=== PATIENT | male | born 1945 | race Caucasian/White ===

== ENCOUNTER → 2017-06-03 | Outpatient (CLI) | payer MEDICARE, OTHER ==
[~2017-06-03] MED LIST: AMOX500C2 PO; CHLO15MO3 MM; FNST5T PO; HYDR-3714 PO; METR250T PO; TMSL.4C PO
--- NOTE | 2017-06-03 09:46 | Diagnostic Imaging Report ---
PROCEDURE: US Gallbladder. TECHNIQUE: Multiple real-time grayscale images were obtained over the right upper quadrant in various projections. INDICATION: Abdominal pain. FINDINGS: The pancreas is obscured by bowel gas. The liver is fairly homogeneous with its diagonal measurements of 18 cm craniocaudally, at the upper limits of normal. There is hepatopetal flow in the portal vein. The gallbladder demonstrates sludge and a stone. There is minimal wall thickening up to 3.5 mm with no pericholecystic fluid. Sonographic Lee sign is reportedly negative. The CBD is at the upper limits of normal measuring 6 mm in caliber. The right kidney is 11.7 cm in length with no hydronephrosis or focal lesion. No fluid collection in the upper right abdomen seen. IMPRESSION: Gallbladder stones and sludge with minimal gallbladder wall thickening, probably related to mild chronic cholecystitis. Dictated by: Dictated on workstation # [id number]
== END ==
LOC: RAD 07:57
PROVIDERS: ATTEND Nurse Practitioner Family
DX: K80.20 Calculus of gallbladder without cholecystitis without obstruction (principal); R10.13 Epigastric pain
CPT/HCPCS: 76705

== ENCOUNTER 2017-06-16 05:34 | Outpatient (CLI) | payer MEDICARE, OTHER ==
[~2017-06-16] VITALS: Ht 177.8 cm; Wt 84.4 kg
[2017-06-16] MEDS ORDERED: METF500T4 PO (10:20)
== END 2017-06-16 10:50 ==
LOC: PREOP 05:34
PROVIDERS: ATTEND Surgery
DX: Z01.818 Encounter for other preprocedural examination (principal); K80.20 Calculus of gallbladder without cholecystitis without obstruction

== ENCOUNTER 2017-06-18 08:20 | Day surgery (SDC) | payer MEDICARE, OTHER ==
[~2017-06-18] VITALS: Ht 177.8 cm; Wt 84.4 kg
[~2017-06-18 08:20] MED LIST changes: +METF500T4 PO
[2017-06-18] MEDS ORDERED: metroNIDAZOLE 500 MG/100 ML IVPB (PRE-MIX) IV ONE (08:45)
[2017-06-18] MEDS ORDERED: ceFAZolin 2 GM/NS 50 ML IV ONE (08:45)
[2017-06-18] MEDS: LACTATED RINGERS 1,000 ML IV PRN ×2 (09:14→11:25)
[2017-06-18 09:24] VITALS: BP 136/77
[2017-06-18] MEDS ORDERED: BUP/EPI 0.25% 1:200,000 (MARCAINE) 10 ML VIAL IJ ONE (09:24)
--- NOTE | 2017-06-18 09:25 | Progress Note-Pre Operative ---
Pre-Operative Progress Note H&P Reviewed The H&P was reviewed, patient examined and no changes noted. Date Seen by Provider: Jun 18, 2017 Time Seen by Provider: 09:25 Date H&P Reviewed: Jun 18, 2017 Time H&P Reviewed: :25 Pre-Operative Diagnosis: gallstones RUDY CORREA MD Jun 18, 2017 9:25 am
[2017-06-18] MEDS ORDERED: fentaNYL INJECTION 100 MCG/2 ML AMP ONE ×2 (09:42→12:07)
[2017-06-18] MEDS ORDERED: MIDAZOLAM 2 MG/2 ML (VERSED) VIAL ONE (09:42)
[2017-06-18] MEDS ORDERED: ONDANSETRON 4 MG/2 ML (SDV) Z0FRAN ONE (09:42)
[2017-06-18] MEDS ORDERED: LIDOCAINE PF 2% 5 ML (XYLOCAINE) VIAL ONE (09:42)
[2017-06-18] MEDS ORDERED: SEVOFLURANE (ULTANE) 15 ML INHAL SOLN ONE ×6 (09:42→11:48)
[2017-06-18] MEDS ORDERED: LACTATED RINGERS 1,000 ML IV ONE ×2 (09:42→12:00)
[2017-06-18] MEDS ORDERED: proPOfol 200 MG/20 ML (DIPRIVAN) VIAL IV ONE (09:42)
[2017-06-18] MEDS ORDERED: morphine INJ 10 MG/ML 1ML (SYR OR VIAL) ONE (10:44)
[2017-06-18] MEDS ORDERED: LABETALOL HCL 20 MG/4 ML VIAL ONE (11:26)
[2017-06-18] MEDS ORDERED: GLYCOPYRROLATE 0.2 MG/ML (ROBINUL) 2 ML VIAL ONE (11:48)
[2017-06-18] MEDS ORDERED: NEOSTIGMINE (BLOXIVERZ ) 1 MG/1ML 10 ML VIAL ONE (11:48)
[2017-06-18] MEDS ORDERED: ROCURONIUM 50 MG/5 ML (ZEMURON) VIAL IV ONE (12:00)
--- NOTE | 2017-06-18 12:08 | Operative Report ---
Operative Report Date of Procedure/Surgery Jun 18, 2017 Surgeon (s) RUDY CORREA MD Applied Behavior Specialist (s): not applicable Post-Operative Diagnosis same Procedure Performed robotic-assisted cholecystectomy Description of Procedure Anesthesia Type: General Estimated blood loss (mL): minimal Specimen(s) collected/removed gallbladder Description of the Procedure Indication for procedure: This gentleman presented with symptomatic gallstones. He was offered cholecystectomy using minimally invasive technique with robotic assistance.informed consent was obtained after reviewing the operative details and complications of wound infection and bile leak. Description of the procedure:He was placed supine on the operating table and general anesthesia induced using an endotracheal tube in gram of Ancef and 500 mg of Flagyl were administered intravenously as prophylaxis against wound infection. Sequential compression devices were placed around his legs, to minimize the risk of venous thrombosis. Abdomen was prepared and draped in the usual sterile manner. A supraumbilical incision was made and pneumoperitoneum established using a Veress needle. Intra -abdominal pressure was maintained at 15 mmHg, using carbon dioxide insufflation. A 12 mm trocar was placed and anatomy visualized using the high definition, 3-dimensional laparoscope, associated with da Anitha system. Gallbladder was rather thick due to chronic inflammation. Under direct view, I placed an 8 mm trocar over each side of the abdomen, followed by a 5 mm trocar over the left upper port. The patient was then turned into reverse Trendelenburg position and the robotic system docked in place. Omentum adherent to the fundus of the gallbladder was taken down using hook cautery. Fundus was then retracted cephalad and infundibulum grasped with Cardiere forceps. Thick tissue around the neck of the gallbladder was incised using hook cautery, delineating the cystic duct and artery. Both were divided between locking clips.cholecystectomy was completed using hook cautery. Subhepatic space was irrigated with saline and the gallbladder placed in an Endo Catch bag, to be removed via the supraumbilical trocar site. The fascia over this incision was closed using #1 Vicryl. Skin incisions were closed using 4-0 Vicryl, in a subcuticular fashion. 0.25 percent Marcaine with epinephrine was infiltrated along the incisions, both pre-preemptively and at the conclusion of the operation. He tolerated the procedure well, was extubated in the operating room and taken to the recovery room in a stable condition. Findings of the Procedure See descriptive report Allergies and Home Medications Allergies Coded Allergies: No Known Drug Allergies (Unverified , 06/16/17) Home Medications Finasteride 5 Mg Tab, 5 MG PO DAILY, (Reported) Metformin HCl 500 Mg Tablet, 500 MG PO DAILY, (Reported) Tamsulosin Hcl 0.4 Mg Cap, 0.8 MG PO HS, (Reported) TAKES 2 (0.4MG) CAPSULES DAILY RUDY CORREA MD Jun 18, 2017 12:08 pm
[2017-06-18] MEDS ORDERED: HYDR-3820 PO (12:09)
--- NOTE | 2017-06-18 12:10 | Discharge Inst-Simple/Standard ---
Discharge Inst-Standard Discharge Medications New, Converted or Re-Newed RX: RX on Chart Patient Instructions/Follow Up Plan of Care/Instructions/FU: Band-Aids off in 48 hours. Incentive spirometry. Follow-up in 3 weeks. Activity as Tolerated: Yes Discharge Diet: ADA RUDY Alvarado MD Jun 18, 2017 12:10 pm
[2017-06-18] MEDS ORDERED: ONDANSETRON 4 MG/2 ML (SDV) Z0FRAN IVP PRN (12:30)
[2017-06-18] MEDS: morphine INJ 10 MG/ML 1ML (SYR OR VIAL) IVP PRN ×2 (12:50→12:55)
[2017-06-18 13:30] VITALS: BP 141/71
[2017-06-18 14:00] VITALS: BP 138/68
[2017-06-18 14:30] VITALS: BP 121/67
[2017-06-18 15:20] VITALS: BP 121/67
== END 2017-06-18 15:20 | disposition home or self-care (01) ==
LOC: SDC 08:20
PROVIDERS: ATTEND Surgery
DX: K81.1 Chronic cholecystitis (principal); R73.03 Prediabetes; Z79.84 Long term (current) use of oral hypoglycemic drugs
CPT/HCPCS: 82962; 87081; 88304; 94664

== ENCOUNTER → 2019-12-22 | Outpatient (CLI) | payer MEDICARE, OTHER ==
[~2019-12-22] MED LIST changes: +HYDR-3820 PO; +METF-397 PO; -METF500T4 PO
--- NOTE | 2019-12-22 15:33 | Diagnostic Imaging Report ---
INDICATION: Lower back and hip pain over the past couple of months. No injury. TECHNIQUE: AP, Lateral, bilateral oblique and Spot imaging of the lumbar spine CORRELATION STUDY: None FINDINGS: Alignment is anatomic. Lumbar vertebral body heights maintained. There is mild anterior osteophyte formation particularly at L3 and L4, to a lesser degree L5 levels. Intervertebral disc spaces appear fairly well-maintained. No spondylolysis or spondylolisthesis. Mild hypertrophic facet arthropathy lower lumbar spine. SI joints with slight sclerosis and fusion inferiorly on the left. IMPRESSION: No radiographic evidence for acute bony abnormality of the lumbar spine. Mild multilevel degenerative changes. Dictated by: Dictated on workstation # [id number]
== END ==
LOC: RAD 14:55
PROVIDERS: ATTEND Chiropractor
DX: M47.816 Spondylosis without myelopathy or radiculopathy, lumbar region (principal); M99.04 Segmental and somatic dysfunction of sacral region; M99.03 Segmental and somatic dysfunction of lumbar region; M99.02 Segmental and somatic dysfunction of thoracic region; M79.10 Myalgia, unspecified site; R29.3 Abnormal posture
CPT/HCPCS: 72110

== ENCOUNTER → 2020-05-13 | Outpatient (CLI) | payer MEDICARE, OTHER ==
[~2020-05-13] VITALS: Ht 178 cm; Wt 86.0 kg
[~2020-05-13] MED LIST changes: +ACHYD1T PO; +CATHETER FLUSH 10 ML SYR IV PRN; -HYDR-3820 PO
[2020-05-13 08:06] VITALS: BP 154/81
--- NOTE | 2020-05-13 11:21 | Cardiology Stress Test Report ---
Stress Test Report Date of Procedure/Referring: Date of Procedure: May 13, 2020 PCP Diogo Marcos DO Admitting Physician Diogo Marcos DO Indications: Elevated calcium score, chest pain Baseline Blood Pressure: Blood Pressure Systolic: 154 Blood Pressure Diastolic: 81 Summary: Patient received resting and stress those of [facility], images were acquired and reviewed in the short axis, horizontal long axis and vertical long axis views. TID 0.92 SSS 2 SDS 2 EF 53% Conclusion: 1. Good radiotracer uptake, minimal decreased uptake at the anteroapical segment with no significant ischemia or infarction 2. Normal left ventricular size with ejection fraction 53 percent ELENI RICCI MD May 13, 2020 11:21
== END ==
LOC: CARD 07:02
PROVIDERS: ATTEND Internal Medicine
DX: R07.9 Chest pain, unspecified (principal); R93.1 Abnormal findings on diagnostic imaging of heart and coronary circulation
CPT/HCPCS: 78452; 93017; A9502

== ENCOUNTER 2021-06-27 10:28 | Outpatient (CLI) | payer MEDICARE, OTHER ==
[~2021-06-27] VITALS: Ht 177 cm; Wt 83.9 kg
[2021-06-27 10:20] VITALS: BP 150/72
[~2021-06-27 10:28] MED LIST changes: -CATHETER FLUSH 10 ML SYR IV PRN
[2021-06-27] MEDS ORDERED: CASIRIVIMAB/IMDEVIMAB 1,200 MG in NS (IVPB) 250 ML IV ONE (10:30)
[2021-06-27] MEDS ORDERED: diphenhydrAMINE 50 MG/ML INJ (BENADRYL) IV PRN (10:30)
[2021-06-27] MEDS ORDERED: EPINEPHrine INJECTION 1 MG/ML AMP IM PRN (10:30)
[2021-06-27 11:49] VITALS: BP 121/76
== END 2021-06-27 12:26 | disposition home or self-care (01) ==
LOC: INFUSION 10:28
PROVIDERS: ATTEND Internal Medicine
DX: Z23 Encounter for immunization (principal); U07.1 COVID-19

== ENCOUNTER → 2021-07-09 | Outpatient (CLI) | payer MEDICARE, OTHER ==
--- NOTE | 2021-07-09 16:37 | Diagnostic Imaging Report ---
EXAMINATION: Chest 2 views. HISTORY: History of Covid 19. COMPARISON: None available. FINDINGS: Heart size and pulmonary vasculature are normal. Minimal interstitial opacities in the lung bases. The osseous structures are intact. IMPRESSION: 1. Minimal interstitial opacities in the lung bases which could represent atelectasis but could also be seen with history of Covid 19 and pneumonia. Dictated by: Dictated on workstation # [id number]
== END ==
LOC: RAD 15:57
PROVIDERS: ATTEND Internal Medicine
DX: R91.8 Other nonspecific abnormal finding of lung field (principal); Z86.16 Personal history of COVID-19
CPT/HCPCS: 71046

== ENCOUNTER → 2021-08-15 | Outpatient (CLI) | payer MEDICARE, OTHER ==
--- NOTE | 2021-08-15 08:51 | Diagnostic Imaging Report ---
Clinical indication: AAA screening. Exam: Ultrasound of the abdominal aorta. Comparison study: None. Findings: The abdominal aorta has smooth contour and caliber without evidence of aneurysms. The maximum AP and transverse diameters for the upper, mid, and distal abdominal aorta are 1.3 cm x 1.6 cm, 1.7 cm x 1.9 cm, and 1.6 cm x 1.7 cm, respectively. Both common iliac artery contours are smooth with normal caliber with the right and left measuring 1.2 cm and 1.2 cm in greatest AP dimension. Impression: There is no evidence of aneurysmal dilation of the abdominal aorta or bilateral common iliac arteries. Dictated by: Dictated on workstation # [id number]
== END ==
LOC: RAD 07:35
PROVIDERS: ATTEND Internal Medicine
DX: Z13.6 Encounter for screening for cardiovascular disorders (principal); I25.10 Atherosclerotic heart disease of native coronary artery without angina pectoris; M54.5 Low back pain
CPT/HCPCS: 76775

== ENCOUNTER → 2021-09-22 | Outpatient (CLI) | payer MEDICARE, OTHER ==
--- NOTE | 2021-09-22 14:02 | Diagnostic Imaging Report ---
PROCEDURE: US carotid duplex, bilateral. TECHNIQUE: Multiple real-time grayscale images were obtained over the carotid arteries in various projections, bilaterally. Additional spectral analysis and color Doppler duplex images were also obtained. INDICATION: Dizziness. COMPARISON: None. FINDINGS: RIGHT CAROTID: There is mild intimal thickening in the common carotid artery. There is jygoorfq-sq-datlsy atherosclerosis in the carotid bifurcation and proximal right ICA. This results in about 50% stenosis visually. Velocities are elevated at the proximal ICA consistent with 50-69% stenosis. No stenosis is seen distally in the ICA. The ECA is patent. The vertebral artery is antegrade. Carotid upstrokes appear brisk. LEFT CAROTID: There is mild intimal thickening of the left common carotid artery and mild atherosclerosis at the carotid bulb. There is mild atherosclerosis at the proximal internal carotid artery with less than 50% stenosis. The ECA is patent. Vertebral artery is antegrade. Carotid upstrokes are brisk. Parameters based on the consensus panel Samuels-Scale and Doppler ultrasound criteria published September 2003, Radiology, Volume 229. DOPPLER (peak systolic velocity M/S Right Left CCA .94 .99 ICA Proximal 1.51 .70 ICA Mid 1.02 .84 ICA Distal .73 .78 RATIO 2.25 .70 ECA 1.06 1.10 VERT .39 .39 IMPRESSION: 1. Atherosclerosis in the carotid arteries, right greater than left, resulting in 50-69% stenosis in the right internal carotid artery. Dictated by: Dictated on workstation # [id number]
== END ==
LOC: RAD 10:45
PROVIDERS: ATTEND Internal Medicine
DX: I65.23 Occlusion and stenosis of bilateral carotid arteries (principal)
CPT/HCPCS: 93880

== ENCOUNTER 2021-11-22 10:23 | Emergency (ER) | payer MEDICARE, OTHER ==
[~2021-11-22] VITALS: Ht 177.8 cm; Wt 83.9 kg
--- NOTE | 2021-11-22 11:11 | ED Cough/URI ---
General Chief Complaint: COVID19 Suspect/Confirmed Stated Complaint: COUGH/CONGESTION/SOA Nursing Triage Note: has had respiritory illness with weakness, cough, congestion and not today feels like he is wheezing and sob Source: patient Exam Limitations: no limitations History of Present Illness Date Seen by Provider: Nov 22, 2021 Time Seen by Provider: 11:01 Initial Comments 76-year-old male presents to the emergency department today with a chief complaint of congestion, cough, concern for wheezing that is developed over the last 48 hours. Not really short of breath. Slightly decreased appetite not eating or drinking much. He denies fevers or chills. He has been using Coricidin without any relief of symptoms. He states that he feels like his cough is "breaking up" starting this morning. No problems with bowel or bladder. No sick contacts with known Covid Covid positive persons. He was tested for Covid 9 days ago as well as 2 days ago and it was negative. He is vaccinated however his vaccines were at the beginning of the year and he has not had a booster. All other review of systems reviewed and negative except as stated Timing/Duration: week, getting worse Severity/Quality: moderate, productive cough, sputum Prior Episodes/Possible Cause: illness exposure Associated Symptoms: nasal congestion Allergies and Home Medications Allergies Coded Allergies: No Known Drug Allergies (Unverified , 06/16/17) Patient Home Medication List Home Medication List Reviewed: Yes Finasteride (Proscar) 5 Mg Tab, 5 MG PO DAILY, (Reported) Entered as Reported by: NESTOR SALGUERO on 01/08/14 1530 Hydrocodone Bit/Acetaminophen (HYDROcodone/APAP 10/325 TABLET) 1 Each Tablet, 1 TAB PO Q4H PRN for PAIN-MILD TO MODERATE Prescribed by: RUDY CORREA on 06/18/17 1209 Metformin HCl (Metformin HCl) 500 Mg Tablet, 500 MG PO DAILY, (Reported) Entered as Reported by: PAVEL LÓPEZ on 06/16/17 1020 Tamsulosin Hcl (Flomax) 0.4 Mg Cap, 0.8 MG PO HS, (Reported) Entered as Reported by: NESTOR SALGUERO on 01/08/14 1529 Review of Systems Review of Systems Constitutional: see HPI EENTM: nose congestion Respiratory: cough, phlegm Cardiovascular: no symptoms reported Gastrointestinal: no symptoms reported Genitourinary: no symptoms reported Musculoskeletal: no symptoms reported Skin: no symptoms reported Psychiatric/Neurological: No Symptoms Reported All Other Systems Reviewed Negative Unless Noted: Yes Past Xitnamb-Szyvrl-Smpifg Hx Patient Social History Tobacco Use?: No Use of E-Cig and/or Vaping dev: No Substance use?: No Alcohol Use?: No Pt feels they are or have been: No Immunizations Up To Date Influenza Vaccine Up-to-Date: Yes; Up-to-Date First/Initial COVID19 Vaccinat: nov 2020 Second COVID19 Vaccination Chato: dec 2020 COVID19 Vaccine Embroidery Patternmaker: moderna Seasonal Allergies Seasonal Allergies: No Past Medical History Orthopedic Reproductive Disorders: No Sexually Transmitted Disease: No HIV/AIDS: No Kidney Stones Gastroesophageal Reflux, Gall Bladder Disease Loss of Vision: Bilateral Hearing Impairment: Denies Adverse Reaction/Blood Tranf: No (N/A) Family Medical History Diabetes Physical Exam Vital Signs - First Documented Capillary Refill : Height: 5'10.00" Weight: 186lbs. 0.0oz. 84.558631nw; 26.00 BMI Method:Stated General Appearance: WD/WN, no apparent distress Eyes: Bilateral Eye Normal Inspection, Bilateral Eye PERRL, Bilateral Eye EOMI HEENT: PERRL/EOMI, other (Appears well-hydrated) Neck: supple Respiratory: no respiratory distress, no accessory muscle use, wheezing (Slight wheeze and occasional crackle noted posteriorly in the left lung) Cardiovascular: regular rate, rhythm Gastrointestinal: normal bowel sounds, non tender, soft Extremities: normal range of motion, non-tender, normal inspection, no pedal edema, no calf tenderness, normal capillary refill Neurologic/Psychiatric: alert, normal mood/affect, oriented x 3 Skin: normal color, warm/dry Progress/Results/Core Measures Suspected Sepsis SIRS Temperature: Pulse: 66 Respiratory Rate: 11 Blood Pressure 199 /94 Mean: 129 Results/Orders Lab Results Laboratory Tests Test 11/22/21 10:48 Range/Units SARS-CoV-2 RNA (RT-PCR) Not Detected Not Detecte My Orders Orders - SWATI BALL MD Chest 1 View, Ap/Pa Only (11/22/21 11:11) Covid 19 Inhouse Test (11/22/21 11:11) Isolation Central Supply Req (11/22/21 11:11) Vital Signs/I&O 11/22/21 11/22/21 10:43 10:43 Temp 36.4 Pulse 66 Resp 11 B/P (MAP) 199/94 (129) Pulse Ox 98 O2 Delivery Room Air Room Air Capillary Refill : Blood Pressure Mean: 129 Progress Note : Time: 12:12 Progress Note Again Covid negative, vital signs are stable oxygen is 97 to 99% on room air with no increased work of breathing. Awaiting chest x-ray. Slight delay as x-ray is up on the floor doing multiple Covid chest x-rays and a swallow study. Diagnostic Imaging Diagonstic Imaging: Xray Plain Films/CT/US/NM/MRI: chest Comments Chest x-ray, interpreted by me, clear lungs, normal mediastinal structures, no effusions or infiltrates, normal bony thorax Departure Impression Primary Impression: Viral syndrome Disposition: 01 HOME, SELF-CARE Condition: Stable Departure-Patient Inst. Decision time for Depature: 12:38 Referrals: MATTHEW MARCOS DO (PCP/Family) Primary Care Physician Patient Instructions: Viral Syndrome (DC) Add. Discharge Instructions: Continue to use the Coricidin for cold symptoms. You can also take some peal-xyz-wxvaxub Mucinex, take this as directed on the box. This will help thin your secretions. Jfvk-ocs-ptevwjv ibuprofen, 2 to 3 tablets which is 400 to 600 mg every 6 hours as needed for fever/chest discomfort with cough. Please try and drink lots of fluids to stay well-hydrated. Return to the emergency room for worsening symptoms especially with fever, progressive shortness of breath or any other emergent concerning symptoms. Follow-up with Dr. Marcos as needed. Copy Copies To 1: MATTHEW MARCOS KATHRYN M MD Nov 22, 2021 11:11
[2021-11-22 12:43] VITALS: BP 173/86
--- NOTE | 2021-11-22 12:55 | Diagnostic Imaging Report ---
INDICATION: Weakness, cough, congestion, shortness of breath. TECHNIQUE: Single view chest 12:41 PM. CORRELATION STUDY: 07/09/2021 FINDINGS: The heart size, mediastinal configuration and pulmonary vascularity are within normal limits. The lungs are clear with no consolidating infiltrate. There is no significant effusion or pneumothorax. IMPRESSION: 1. Negative for acute abnormality of the chest. Dictated by: Dictated on workstation # [id number]
== END 2021-11-22 12:48 | disposition home or self-care (01) ==
LOC: EDUNIT# 10:23 → ER 10:25
DX: B34.9 Viral infection, unspecified (principal); Z20.822 Contact with and (suspected) exposure to COVID-19
CPT/HCPCS: 71045; 87636

== ENCOUNTER 2021-12-15 05:30 | Outpatient (CLI) | payer MEDICARE, OTHER ==
[~2021-12-15] VITALS: Ht 177.8 cm; Wt 84.1 kg
[2021-12-18] MEDS ORDERED: MELO-170 PO (14:54)
[2021-12-18] MEDS ORDERED: ASPI-999 PO (14:54)
[2021-12-18] MEDS ORDERED: OMEP40CA6 PO (14:54)
[2021-12-18] MEDS ORDERED: METHYL B12 (14:54)
[2021-12-18] MEDS ORDERED: ATOR40TA70 PO (14:54)
[2021-12-18] MEDS ORDERED: MAGN400T39 PO (14:54)
[2021-12-18] MEDS ORDERED: DUTA0.5C36 PO (15:03)
== END 2021-12-18 15:04 | disposition home or self-care (01) ==
LOC: PREOP 05:30
PROVIDERS: ATTEND Specialist
DX: Z01.818 Encounter for other preprocedural examination (principal)

== ENCOUNTER 2021-12-22 06:12 | Day surgery (SDC) | payer MEDICARE, OTHER ==
[~2021-12-22] VITALS: Ht 177.8 cm; Wt 84.1 kg
[~2021-12-22 06:12] MED LIST changes: +ASPI-999 PO; +ATOR40TA70 PO; +DUTA0.5C36 PO; +MAGN400T39 PO; +MELO-170 PO; +METHYL B12; +OMEP40CA6 PO
[2021-12-22] MEDS ORDERED: TIMOLOL MALEATE 0.5% 5 ML (TIMOPTIC) BTL OU PRN (06:30)
[2021-12-22] MEDS ORDERED: POVIDONE (BETADINE) OPHTH SOLN 5% 30 ML OP ONE (06:30)
[2021-12-22] MEDS ORDERED: LIDOCAINE PF 1% 2 ML VIAL IR PRN (06:30)
[2021-12-22] MEDS ORDERED: MOXIFLOXACIN OPHTH SOLN 5 MG/ML 0.3 ML SYRINGE OP ONE (06:30)
[2021-12-22] MEDS: TETRACAINE 0.5% OPHTH SOLN 4 ML BTL (SINGLE DOSE ONLY) OU PRN ×4 (06:36→06:53)
[2021-12-22 06:40] VITALS: BP 151/76
[2021-12-22] MEDS: PHENYLEPHRINE 10% OPHTH (NEO-SYN) 5 ML BTL OU SCH ×3 (06:43→06:53)
[2021-12-22] MEDS: TROPICAMIDE 1% OPH SOLN (MYDRIACYL) 15 ML BTL OP SCH ×3 (06:43→06:53)
[2021-12-22] MEDS ORDERED: MIDAZOLAM 2 MG/2 ML (VERSED) VIAL ONE (06:55)
--- NOTE | 2021-12-22 06:57 | Ophthalmologist Pre-Op Note ---
Pre-Operative Progress Note H&P Reviewed The H&P was reviewed, patient examined and no changes noted. Date H&P Reviewed: Dec 22, 2021 Time H&P Reviewed: 06:57 Pre-Op Dx Cataract, Right Eye TAMMIE HOOVER MD Dec 22, 2021 06:57
--- NOTE | 2021-12-22 07:20 | Ophthalmology Operative Report ---
Cataract, Miotic Pupil PREOPERATIVE DIAGNOSIS: 1. Cataract Right Eye 2. Miotic Pupil POSTOPERATIVE DIAGNOSIS: 1. Cataract Right Eye 2. Miotic Pupil PROCEDURE: 1. Cataract removal and placement of posterior chamber implant, right eye 2. Pupillary expansion with malyugin ring SURGEON: Adin Hoover ANESTHESIA: Topical with sedation COMPLICATIONS: None ESTIMATED BLOOD LOSS: Minimal DESCRIPTION OF PROCEDURE: After proper informed consent was obtained, the patient, a 76 male, was taken to the Operating Room and the right eye was anesthetized with Tetracaine. The eye was then prepped and draped in the usual manner. A wire lid speculum was placed. A paracentesis was made at the left hand position. Preservative free lidocaine was injected into anterior chamber followed by viscoelastic. A clear corneal incision was made in the temporal position. The malyugin ring was injected into the anterior chamber and the pupil was dilated. A capsulorrhexis was preformed and the central nuclear and cortical material were removed. The posterior capsule was polished and Nelson 19.5 AU00T0 IOL was placed into the capsular bag. The malyugin ring was removed. The residual viscoelastic was aspirated and the balanced saline solution was injected into the anterior chamber. Moxifloxacin was injected into the anterior chamber. The wound was checked and found to be water tight. The patient tolerated the procedure well without complications. ADIN HOOVER MD Dec 22, 2021 07:20
[2021-12-22] MEDS ORDERED: acetaZOLAMIDE ER 500 MG CAP (DIAMOX SEQUELS) PO ONE (07:30)
[2021-12-22 07:36] VITALS: BP 150/78
--- NOTE | 2021-12-22 12:43 | Anesthesia-General Post-Op ---
MAC Patient Condition Mental Status/LOC: Same as Preop Cardiovascular: Satisfactory Nausea/Vomiting: Absent Respiratory: Satisfactory Pain: Controlled Complications: Absent Post Op Complications Complications None Follow Up Care/Instructions Patient Instructions None needed. Anesthesiology Discharge Order Discharge Order Patient was doing well this morning after the procedure, no complaints, stable vital signs, no apparent adverse anesthesia problems. JADE CASTANON DO Dec 22, 2021 12:43
== END 2021-12-22 07:37 ==
LOC: SDC 06:12
PROVIDERS: ATTEND Specialist
DX: E11.36 Type 2 diabetes mellitus with diabetic cataract (principal); H25.11 Age-related nuclear cataract, right eye; H57.03 Miosis; E78.5 Hyperlipidemia, unspecified; K21.9 Gastro-esophageal reflux disease without esophagitis; E11.9 Type 2 diabetes mellitus without complications; Z79.82 Long term (current) use of aspirin; Z79.84 Long term (current) use of oral hypoglycemic drugs; Z79.899 Other long term (current) drug therapy; Z83.3 Family history of diabetes mellitus
CPT/HCPCS: 66982; V2632

== ENCOUNTER 2022-01-09 06:03 | Day surgery (SDC) | payer MEDICARE, OTHER ==
[~2022-01-09] VITALS: Ht 177 cm; Wt 84.1 kg
[2022-01-09] MEDS: TETRACAINE 0.5% OPHTH SOLN 4 ML BTL (SINGLE DOSE ONLY) OU PRN ×4 (06:14→06:36)
[2022-01-09] MEDS ORDERED: MOXIFLOXACIN OPHTH SOLN 5 MG/ML 0.3 ML SYRINGE OP ONE (06:15)
[2022-01-09] MEDS ORDERED: POVIDONE (BETADINE) OPHTH SOLN 5% 30 ML OP ONE (06:15)
[2022-01-09] MEDS ORDERED: LIDOCAINE PF 1% 2 ML VIAL IR PRN (06:15)
[2022-01-09] MEDS ORDERED: TIMOLOL MALEATE 0.5% 5 ML (TIMOPTIC) BTL OU PRN (06:15)
[2022-01-09 06:19] VITALS: BP 137/74
[2022-01-09] MEDS: TROPICAMIDE 1% OPH SOLN (MYDRIACYL) 15 ML BTL OP SCH ×3 (06:22→06:36)
[2022-01-09] MEDS: PHENYLEPHRINE 10% OPHTH (NEO-SYN) 5 ML BTL OU SCH ×3 (06:22→06:36)
[2022-01-09] MEDS ORDERED: MIDAZOLAM 2 MG/2 ML (VERSED) VIAL ONE (06:54)
--- NOTE | 2022-01-09 07:08 | Ophthalmologist Pre-Op Note ---
Pre-Operative Progress Note H&P Reviewed The H&P was reviewed, patient examined and no changes noted. Date H&P Reviewed: Jan 09, 2022 Time H&P Reviewed: 07:08 Pre-Op Dx Cataract, Left Eye TAMMIE HOOVER MD Jan 09, 2022 07:08
--- NOTE | 2022-01-09 07:23 | Ophthalmology Operative Report ---
Cataract removal/placement IOL PREOPERATIVE DIAGNOSIS: Cataract Left Eye POSTOPERATIVE DIAGNOSIS: Cataract Left Eye PROCEDURE: Cataract removal and placement of posterior chamber implant, left eye SURGEON: Adin Hoover ANESTHESIA: Topical with sedation COMPLICATIONS: None ESTIMATED BLOOD LOSS: Minimal DESCRIPTION OF PROCEDURE: After proper informed consent was obtained, the patient, a 76 male, was taken to the Operating Room and the left eye was anesthetized with tetracaine. The left eye was then prepped and draped in the usual manner. A wire lid speculum was placed. A paracentesis was made at the left hand position. Preservative free lidocaine was injected into the anterior chamber followed by viscoelastic. A clear corneal incision was made in the temporal position. A capsulorrhexis was preformed and the central nuclear and cortical material were removed. The posterior capsule was polished and an Nelson 20.0 AU00T0 was placed into the capsular bag. The residual viscoelastic was aspirated and balanced saline solution was injected into the anterior chamber. Moxifloxacin was injected into the anterior chamber. The wound was checked and found to be water tight. The patient tolerated the procedure well without complications. ADIN HOOVER MD Jan 09, 2022 07:23
[2022-01-09 07:28] VITALS: BP 151/77
[2022-01-09] MEDS ORDERED: acetaZOLAMIDE ER 500 MG CAP (DIAMOX SEQUELS) PO ONE (09:00)
--- NOTE | 2022-01-09 10:41 | Anesthesia-General Post-Op ---
MAC Patient Condition Mental Status/LOC: Same as Preop Cardiovascular: Satisfactory Nausea/Vomiting: Absent Respiratory: Satisfactory Pain: Controlled Complications: Absent Post Op Complications Complications None Follow Up Care/Instructions Patient Instructions None needed. Anesthesiology Discharge Order Discharge Order Patient is doing well, no complaints, stable vital signs, no apparent adverse anesthesia problems. No complications reported per nursing. ERIKA KOCH CRNA Jan 09, 2022 10:41
== END 2022-01-09 07:30 | disposition home or self-care (01) ==
LOC: SDC 06:03
PROVIDERS: ATTEND Specialist
DX: E11.36 Type 2 diabetes mellitus with diabetic cataract (principal); H25.9 Unspecified age-related cataract; K21.9 Gastro-esophageal reflux disease without esophagitis; Z79.84 Long term (current) use of oral hypoglycemic drugs; Z79.899 Other long term (current) drug therapy; Z79.82 Long term (current) use of aspirin
CPT/HCPCS: 66984; V2632

== ENCOUNTER 2022-06-12 09:08 | Outpatient (RCR) | payer MEDICARE, OTHER | END 2022-06-21 | disposition home or self-care (01) | PROVIDERS: ATTEND Internal Medicine | DX: M48.062 Spinal stenosis, lumbar region with neurogenic claudication (principal) ==

== ENCOUNTER 2022-07-21 08:00 | Outpatient (RCR) | payer MEDICARE, OTHER | END 2022-07-22 | disposition home or self-care (01) | PROVIDERS: ATTEND Internal Medicine | DX: M48.062 Spinal stenosis, lumbar region with neurogenic claudication (principal) ==

== ENCOUNTER 2022-08-20 08:06 | Outpatient (RCR) | payer MEDICARE, OTHER | END 2022-08-21 | disposition home or self-care (01) | PROVIDERS: ATTEND Internal Medicine | DX: M51.36 Other intervertebral disc degeneration, lumbar region (principal); M48.062 Spinal stenosis, lumbar region with neurogenic claudication ==

== ENCOUNTER 2022-09-03 08:00 | Outpatient (RCR) | payer MEDICARE, OTHER | END 2022-09-21 | disposition home or self-care (01) | PROVIDERS: ATTEND Internal Medicine | DX: M48.062 Spinal stenosis, lumbar region with neurogenic claudication (principal) ==

== ENCOUNTER → 2022-10-21 | Outpatient (RCR) | payer MEDICARE, OTHER | END | disposition home or self-care (01) | PROVIDERS: ATTEND Internal Medicine | DX: M47.816 Spondylosis without myelopathy or radiculopathy, lumbar region (principal); M48.062 Spinal stenosis, lumbar region with neurogenic claudication ==

== ENCOUNTER → 2022-11-12 | Outpatient (CLI) | payer MEDICARE, OTHER ==
[~2022-11-12] MED LIST changes: +CATHETER FLUSH 10 ML SYR IVP PRN
[2022-11-12 08:13] VITALS: BP 193/88
--- NOTE | 2022-11-12 09:48 | Diagnostic Imaging Report ---
Indication: Dyspnea. Time of Exam: 8:59 AM Comparison is made with prior chest from 07/09/2021. Findings: The heart size is normal. The pulmonary vascularity is unremarkable. The lungs are clear. No infiltrate, effusion or pneumothorax is detected. Impression: No acute cardiopulmonary process is detected. Dictated by: Dictated on workstation # [id number]
--- NOTE | 2022-11-12 12:45 | Cardiology Stress Test Report ---
Stress Test Report Date of Procedure/Referring: Date of Procedure: Nov 12, 2022 PCP Matthew Marcos DO Admitting Physician Admitting Physician: Attending Physician: Matthew Marcos DO Baseline Vital Signs Vital Signs Date Time Temp Pulse Resp B/P (MAP) Pulse Ox O2 Delivery O2 Flow Rate FiO2 11/12/22 08:13 61 193/88 (123 98 Summary: Patient receive a resting and stress dose of Myoview, images were acquired and reviewed in the short axis view, horizontal long axis view and vertical long axis view. TID: 1.14 SSS: 0 SDS: 0 EF: 63 1. No significant ischemia or infarction on SPECT images 2. Normal left ventricular size, ejection fraction 63% Copy Copies To 1: MATTHEW MARCOS BASHAR J MD Nov 12, 2022 12:45
== END ==
LOC: CARD 06:34
PROVIDERS: ATTEND Internal Medicine
DX: R06.09 Other forms of dyspnea (principal)
CPT/HCPCS: 71046; 78452; 93017; A9502

== ENCOUNTER 2022-11-19 08:03 | Outpatient (RCR) | payer MEDICARE, OTHER ==
[~2022-11-19 08:03] MED LIST changes: -CATHETER FLUSH 10 ML SYR IVP PRN
== END 2022-11-21 | disposition home or self-care (01) ==
PROVIDERS: ATTEND Internal Medicine
DX: M48.062 Spinal stenosis, lumbar region with neurogenic claudication (principal)

== ENCOUNTER → 2022-12-02 | Outpatient (CLI) | payer MEDICARE, OTHER ==
--- NOTE | 2022-12-02 17:58 | Diagnostic Imaging Report ---
INDICATION: Bilateral hip pain. TIME OF EXAM: 12:17 PM. EXAMINATION: AP view of the pelvis and two views of each hip were obtained. FINDINGS: Femoral acetabular alignment appears normal, bilaterally. There is moderate degenerative joint disease in left hip with medial and superior joint space narrowing. Milder degenerative changes of the right hip are noted. Both femoral heads and necks appear to be intact. The rami are intact. SI joints and symphysis are non-widened. No fracture is seen. IMPRESSION: Bilateral hip joint degenerative changes, left greater. No acute bony abnormality is detected. Dictated by: Dictated on workstation # [id number]
== END ==
LOC: RAD 11:48
PROVIDERS: ATTEND Internal Medicine
DX: M16.0 Bilateral primary osteoarthritis of hip (principal)
CPT/HCPCS: 73523

== ENCOUNTER → 2022-12-07 | Outpatient (CLI) | payer MEDICARE, OTHER | LOC: CARD 11:22 | PROVIDERS: ATTEND Internal Medicine | DX: M99.01 Segmental and somatic dysfunction of cervical region (principal); I35.1 Nonrheumatic aortic (valve) insufficiency; M25.552 Pain in left hip; M25.551 Pain in right hip; E29.1 Testicular hypofunction | CPT/HCPCS: 93306 ==

== ENCOUNTER → 2023-01-19 | Outpatient (CLI) | payer MEDICARE, OTHER ==
--- NOTE | 2023-01-19 11:59 | Diagnostic Imaging Report ---
PROCEDURE: MRI lumbar spine. TECHNIQUE: Multiplanar, multisequence MRI of the lumbar spine was performed without contrast. INDICATION: Chronic low back pain. Multiple multisequence non-contrasted lumbar MRI performed. Its correlated with lumbar radiographs 12/22/2019. No previous for direct comparison. There is a very minimal marrow edema associated with a likely a subacute or early chronic Schmorl's node deformity to the L2 inferior endplate. An old nonedematous L4 superior endplate Schmorl's node deformity clearly chronic. Overall the lumbar vertebral statures themselves are within normal limits and there is no listhesis. There is very minimal edematous Modic type I degenerative changes across the L4-L5 opposing endplates. Lower thoracic cord and conus normal. There is a normal dispersal of the nerves of the cauda equina. No paravertebral mass, hemorrhage or fluid collection. T12-L1: This level and disc unremarkable. No stenosis. L1-L2: This level and disc unremarkable. No stenosis. L2-L3: There is disc desiccation, disc stature loss, endplate osteophytes, disc bulge, thickened ligamenta flava and mild facet arthrosis. The findings result in mild to moderate canal stenosis with mild biforaminal narrowing. L3-L4: Disc desiccation, disc stature loss and degenerative endplate changes. Thickened ligamenta flava and right greater than left facet arthrosis result in a mild canal stenosis. There is a moderate to severe right and [id number] left foraminal narrowing. There is a mild degree of impingement upon the right lateral recess. L4-L5: Buckle thickened ligamenta flava and facet arthrosis in conjunction with mild circumferential annular disc bulge result in moderate canal stenosis. There is no substantial foraminal narrowing however there is mild right and moderate left lateral recess impingement. L5-S1: Disc desiccation, stature loss, bulge and endplate osteophytes with borderline mild bi-foraminal narrowing. The recesses patent. There is no significant canal stenosis. IMPRESSION: Multilevel degenerative changes to the discs, endplates and posterior elements result in multilevel variable degrees of spinal canal, neural foraminal and lateral recess stenoses detailed level by level above with normal alignment and no acute appearing bony pathology Dictated by: Dictated on workstation # [id number]
== END ==
LOC: RAD 09:04
PROVIDERS: ATTEND Registered Nurse
DX: M51.37 Other intervertebral disc degeneration, lumbosacral region (principal); M47.816 Spondylosis without myelopathy or radiculopathy, lumbar region; M51.27 Other intervertebral disc displacement, lumbosacral region; M48.062 Spinal stenosis, lumbar region with neurogenic claudication
CPT/HCPCS: 72148

== ENCOUNTER → 2023-01-22 | Outpatient (CLI) | payer MEDICARE, OTHER ==
--- NOTE | 2023-01-22 17:27 | Diagnostic Imaging Report ---
INDICATION: Chronic back pain. Compared with exam 12/22/2019 FINDINGS: Lumbar stature is normal. The alignment anatomic. There is degenerative disc space narrowing as well as sclerotic facet arthrosis. Lateral films are performed flexion and with extension showing no pathological motion. IMPRESSION: Degenerative changes aligned anatomically with no pathological motion in flexion or extension Dictated by: Dictated on workstation # [id number]
== END ==
LOC: RAD 12:07
PROVIDERS: ATTEND Registered Nurse
DX: M48.062 Spinal stenosis, lumbar region with neurogenic claudication (principal); M47.817 Spondylosis without myelopathy or radiculopathy, lumbosacral region
CPT/HCPCS: 72110

== ENCOUNTER → 2023-05-14 | Outpatient (CLI) | payer MEDICARE, OTHER ==
[~2023-05-14] VITALS: Ht 177 cm; Wt 87.0 kg
[~2023-05-14] MED LIST changes: +CATHETER FLUSH 10 ML SYR IVP PRN; +REGADENOSON 0.4 MG/5 ML SYR (LEXISCAN) IV ONE
[2023-05-14 08:23] VITALS: BP 164/82
--- NOTE | 2023-05-15 11:48 | Cardiology Stress Test Report ---
Stress Test Report Type of NM Stress Test: Test Type: NUCLEAR TREADMILL Date of Procedure/Referring: Date of Procedure: May 14, 2023 PCP Diogo Marcos DO Admitting Physician Admitting Physician: Attending Physician: Diogo Marcos DO Indications: dyspnea Baseline Blood Pressure: Blood Pressure Systolic: 164 Blood Pressure Diastolic: 82 Summary & Conclusion: Summary: The patient was brought to the stress lab after informed consent was taken. Stress test was performed according to the [facility] protocol. Please review Dr Marcos's report for the treadmill test. 11 mCi of Myoview were given for rest imaging and 31 mCi of Myoview given for s tress imaging. Transient ischemic dilatation score 1.08, EF 66 percent. Normal wall motion. Normal myocardial perfusion imaging during rest and stress. Conclusion: Normal LV function with no wall motion abnormalities. Normal myocardial perfusion imaging during rest and stress. Katy QUINTANA MD May 15, 2023 11:48
== END ==
LOC: CARD 07:30
PROVIDERS: ATTEND Internal Medicine
DX: I25.10 Atherosclerotic heart disease of native coronary artery without angina pectoris (principal); R06.09 Other forms of dyspnea
CPT/HCPCS: 78452; 93017; A9502